=== PATIENT | male | born 1995 ===

== ENCOUNTER 2016-12-14 15:59 | Emergency (ER) | payer OTHER ==
[2016-12-14 15:59] VITALS: BMI 34.4
[2016-12-14 16:13] VITALS: TEMP 98.4; O2SAT 98
[2016-12-14] MEDS ORDERED: TDAP Vaccine 0.5 mL Syr IM ONE (16:17)
[2016-12-14] MEDS ORDERED: Amoxicillin-Clav 875-125 mg Tab PO STA (16:19)
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
[2016-12-14 16:33] VITALS: RESP 18
[2016-12-14 16:38] LABS: ADD MANUAL DIFF? NO
[2016-12-14 16:43] LABS: BASO # 0.01 K/mm3 (0.0-2.0); BASO % 0.1 % (0.0-3.0); EOS # 0.1 (0.0-0.7); GRAN # 6.88 (1.4-6.5); HEMATOCRIT 37.7 % (42.0-52.0); LYMPH # 2.4 (1.2-3.4); LYMPH % 23.8 % (22.0-35.0); MEAN CELL VOLUME 61.7 fL (80.0-105.0); MEAN CORPUSCULAR HEMOGLOBIN 20.3 pg (25.0-35.0); MEAN CORPUSCULAR HGB CONC 32.9 g/dl (31.0-37.0); MEAN PLATELET VOLUME 10.2 fl (7.0-11.0); MONO # 0.6 (0.1-0.6); MONO % 6.1 % (1.0-6.0); PLATELET COUNT 299 10^3/uL (120.0-450.0); RED CELL DISTRIBUTION WIDTH 15.3 % (11.5-14.5)
[2016-12-14 16:56] LABS: ALB/GLOB RATIO 1.2 (1.1-1.8); ALKALINE PHOSPHATASE 62 U/L (38-133); ALT/SGPT 35 U/L (7-56); AST/SGOT 22 U/L (15-59); BILIRUBIN,TOTAL 0.7 mg/dL (0.2-1.3); BLOOD UREA NITROGEN 16 mg/dL (7-21); CALCIUM 9.6 mg/dL (8.4-10.5); CARBON DIOXIDE 28 mmol/L (21-33); CHLORIDE 100 mmol/L (98-107); GFR AFRICAN-AMERICAN > 60; GLUCOSE,RANDOM 108 mg/dL (70-110); LIPASE 114 U/L (23-300); POTASSIUM 4.2 mmol/L (3.6-5.0); SODIUM 140 mmol/L (132-148); TOTAL PROTEIN 7.8 g/dL (5.8-8.3)
[2016-12-14 17:14] LABS: URINE BILIRUBIN NEGATIVE (NEGATIVE); URINE BLOOD NEGATIVE (NEGATIVE); URINE GLUCOSE (UA) NEGATIVE (NEGATIVE); URINE KETONE NEGATIVE (NEGATIVE); URINE LEUKOCYTE ESTERASE NEGATIVE Leu/uL (NEGATIVE); URINE PROTEIN NEGATIVE mg/dL (<30 mg/dL); URINE UROBILINOGEN 0.2 E.U./dL (<1 E.U./dL)
[2016-12-14 17:16] LABS: URINE APPEARANCE CLEAR (CLEAR); URINE COLOR YELLOW (YELLOW)
[2016-12-14 18:16] VITALS: BP 156/88; PULSE 84
== END 2016-12-14 18:17 | disposition home or self-care (01) ==
LOC: ED 15:59
DX: S50.872A Other superficial bite of left forearm, initial encounter (principal); W50.3XXA Accidental bite by another person, initial encounter; Z23 Encounter for immunization; Z77.21 Contact with and (suspected) exposure to potentially hazardous body fluids

== ENCOUNTER 2018-02-14 12:01 | Emergency (ER) | payer OTHER ==
[2018-02-14 12:22] VITALS: BMI 35.4
[2018-02-14 12:26] VITALS: TEMP 98.1
[2018-02-14 13:28] VITALS: PULSE 68; O2SAT 100
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
[2018-02-14 14:10] VITALS: BP 122/70; RESP 16
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
== END 2018-02-14 14:09 | disposition home or self-care (01) ==
LOC: ED 12:01
DX: S60.012A Contusion of left thumb without damage to nail, initial encounter (principal); W23.0XXA Caught, crushed, jammed, or pinched between moving objects, initial encounter; Y92.9 Unspecified place or not applicable